=== PATIENT | male | born 1990 | race Caucasian/White ===

== ENCOUNTER 2017-01-09 23:45 | Emergency (ER) | payer SELFPAY ==
[~2017-01-09 23:45] MED LIST: NAPR-576 PO
[2017-01-09 23:48] VITALS: BP 152/101; PULSE 78; RESP 16; TEMP 98.3; O2SAT 97
[2017-01-10] MEDS ORDERED: MOBI15TA PO (01:45)
--- NOTE | 2017-01-10 01:45 | PD ---
HPI Chief Complaint: Abdominal Pain Time Seen by Provider: 01:33 Travel History International Travel<30 days: No Contact w/Intl Traveler<30days: No Traveled to known affect area: No History of Present Illness HPI 26-year-old male complains of painful umbilical hernia. Patient states that he has a medical hernia for the past few years. Patient states that the hernia has increased in size since then. Patient states that he has increasing pain around the umbilical hernia since this morning. Patient denies any fever. Patient denies nausea vomiting. Patient states the pain is sharp pain localized around a vehicle area. Patient denies any pain radiation. On a scale of 1-10 the pain is a 7. PFSH Past Medical History Asthma: Yes Diminished Hearing: No Past Surgical History Other Surgery: Yes (RIGHT LEG SURGERY) Social History Alcohol Use: Yes (OCCASIONALLY) Tobacco Use: No (never) Substance Use: No Allergies-Medications (Allergen,Severity, Reaction): Coded Allergies: Percocet (Verified Allergy, Severe, Hives, 03/01/15) Reported Meds & Prescriptions Reported Meds & Active Scripts Active Review of Systems General / Constitutional: No: Fever Eyes: No: Visual changes HENT: No: Headaches Cardiovascular: No: Chest Pain or Discomfort Respiratory: No: Shortness of Breath Gastrointestinal: Positive: Abdominal Pain Genitourinary: No: Dysuria Musculoskeletal: No: Pain Skin: No Rash Neurologic: No: Weakness Psychiatric: No: Depression Endocrine: No: Polydipsia Hematologic/Lymphatic: No: Easy Bruising Physical Exam Narrative GENERAL: Well-nourished, well-developed patient. SKIN: Focused skin assessment warm/dry. HEAD: Normocephalic. EYES: No scleral icterus. No injection or drainage. NECK: Supple, trachea midline. No JVD or lymphadenopathy. CARDIOVASCULAR: Regular rate and rhythm without murmurs, gallops, or rubs. RESPIRATORY: Breath sounds equal bilaterally. No accessory muscle use. GASTROINTESTINAL: Abdomen soft, nondistended. Patient has a small soft reducible umbilical hernia. Mild tenderness on palpation. MUSCULOSKELETAL: No cyanosis, or edema. BACK: Nontender without obvious deformity. No CVA tenderness. Data Data Last Documented VS Vital Signs Date Time Temp Pulse Resp B/P Pulse Ox O2 Delivery O2 Flow Rate FiO2 01/09/17 23:48 98.3 78 16 152/101 97 MDM Medical Decision Making Medical Screen Exam Complete: Yes Emergency Medical Condition: Yes Differential Diagnosis Differential diagnosis including reducible medical hernia, strangulated umbilical hernia incarcerated umbilical hernia. Narrative Course 26-year-old male with reducible umbilical hernia. Diagnosis Primary Impression: Umbilical hernia Qualified Code: K42.9 - Umbilical hernia without obstruction and without gangrene Patient Instructions: General Instructions Additional Instructions: Mobic as needed for pain. Follow up with general surgeon. Return if unable to reduce the hernia, increased abdominal pain, fever, vomiting. Med/Other Pt SpecificInfo: Prescription(s) given Scripts Meloxicam (Mobic)15 Mg Tab15 Mg PO DAILY #20 TAB Prov:Beny Camacho MD 01/10/17 Disposition: 01 DISCHARGE HOME Condition: Stable Beny Camacho MD Jan 10, 2017 01:45
== END 2017-01-10 02:28 | disposition home or self-care (01) ==
LOC: NEPC 23:45
DX: K42.9 Umbilical hernia without obstruction or gangrene (principal)
CPT/HCPCS: 99283

== ENCOUNTER 2017-02-07 14:45 | Emergency (ER) | payer SELFPAY ==
[~2017-02-07] VITALS: Ht 180.3 cm; Wt 141.0 kg
[~2017-02-07 14:45] MED LIST changes: +MOBI15TA PO; -NAPR-576 PO
[2017-02-07] MEDS ORDERED: IOHEXOL 350 MG/ML 10 ML VIAL (for RAD DIAG) IVCONTRAST ONE (14:46)
[2017-02-07 14:51] VITALS: BP 139/88; PULSE 95; RESP 16; TEMP 98.4; O2SAT 99
--- NOTE | 2017-02-07 14:52 | PD ---
Physical Exam Date Seen by Provider: Feb 07, 2017 Time Seen by Provider: 14:51 Narrative 26 yo male here for abdominal pain. On/Off for some time. pain on the left side of the abdomen. No N/V. Pressure like. No other medical issues. Vitals are stable in triage. Awaiting bed placement. [facility] Medical Record Reviewed: Yes Supervised Visit with ANSHU: No Gurpreet Anderson Feb 07, 2017 14:52
[2017-02-07 15:40] VITALS: O2SAT 98
[2017-02-07] MEDS ORDERED: SODIUM CHLOR 0.9% 1000 ML INJ 1,000 ML IV SCH (15:51)
[2017-02-07 15:53] LABS: AUTOMATED NEUTROPHIL # 4.1 TH/MM3 (1.8-7.7); BASOPHIL % 0.4 % (0.0-2.0); EOSINOPHIL # 0.3 TH/MM3 (0-0.4); EOSINOPHIL % 3.6 % (0.0-4.0); HEMATOCRIT 43.9 % (39.0-51.0); HEMO FLAGS DIFF FINAL; LYMPH % 35.6 % (9.0-44.0); LYMPHOCYTE # 2.6 TH/MM3 (1.0-4.8); MEAN CORPUSCULAR HEMOGLOBIN 27.5 PG (27.0-34.0); MEAN CORPUSCULAR HGB CONC 33.1 % (32.0-36.0); NEUT % 55.4 % (16.0-70.0); PLATELET COUNT 207 TH/MM3 (150-450); RED BLOOD COUNT 5.29 MIL/MM3 (4.50-5.90); RED CELL DISTRIBUTION WIDTH 14.3 % (11.6-17.2); WHITE BLOOD COUNT 7.4 TH/MM3 (4.0-11.0)
--- NOTE | 2017-02-07 15:56 | PD ---
HPI Chief Complaint: Abdominal Pain Time Seen by Provider: 15:43 Travel History International Travel<30 days: No Contact w/Intl Traveler<30days: No Traveled to known affect area: No History of Present Illness HPI 26-year-old male complains of left flank pain the left low quadrant abdominal pain. Patient states that the pain started several days ago and got worse since last night. Patient states that the pain is sharp pain started the right flank area with radiation down to left low quadrant of her abdomen. Patient states that the pain is worse with movement. Patient states that he has no pain at rest. Patient denies any fever chills. Patient denies any dysuria or frequency. Patient denies any nausea vomiting diarrhea. Patient states there has poor appetite today. On a scale of 1-10 the pain is a 7. PFSH Past Medical History Asthma: Yes Diminished Hearing: No Past Surgical History Other Surgery: Yes (RIGHT LEG SURGERY) Social History Alcohol Use: Yes (OCCASIONALLY) Tobacco Use: Yes (vapor) Substance Use: No Allergies-Medications (Allergen,Severity, Reaction): Coded Allergies: acetaminophen (Unverified Allergy, Severe, Hives, 02/07/17) oxycodone (Unverified Allergy, Severe, Hives, 02/07/17) Reported Meds & Prescriptions Reported Meds & Active Scripts Active Mobic (Meloxicam) 15 Mg Tab 15 Mg PO DAILY Review of Systems General / Constitutional: No: Fever Eyes: No: Visual changes HENT: No: Headaches Cardiovascular: No: Chest Pain or Discomfort Respiratory: No: Shortness of Breath Gastrointestinal: Positive: Abdominal Pain Genitourinary: No: Dysuria Musculoskeletal: No: Pain Skin: No Rash Neurologic: No: Weakness Psychiatric: No: Depression Endocrine: No: Polydipsia Hematologic/Lymphatic: No: Easy Bruising Physical Exam Narrative GENERAL: Well-nourished, well-developed patient. SKIN: Focused skin assessment warm/dry. HEAD: Normocephalic. EYES: No scleral icterus. No injection or drainage. NECK: Supple, trachea midline. No JVD or lymphadenopathy. CARDIOVASCULAR: Regular rate and rhythm without murmurs, gallops, or rubs. RESPIRATORY: Breath sounds equal bilaterally. No accessory muscle use. GASTROINTESTINAL: Abdomen soft, non-tender, nondistended. MUSCULOSKELETAL: No cyanosis, or edema. BACK: Nontender without obvious deformity. No CVA tenderness. Neurologic exam normal. Data Data Last Documented VS Vital Signs Date Time Temp Pulse Resp B/P (MAP) Pulse Ox O2 Delivery O2 Flow Rate FiO2 02/07/17 14:51 98.4 95 16 139/88 (105) 99 Orders Orders Complete Blood Count With Diff (02/07/17 14:52) Comprehensive Metabolic Panel (02/07/17 14:52) Lipase (02/07/17 14:52) Urinalysis - C+S If Indicated (02/07/17 14:52) Ct Abd/Pel W Iv Contrast(Rout) (02/07/17 15:51) Iv Access Insert/Monitor (02/07/17 15:51) Ecg Monitoring (02/07/17 15:51) Oximetry (02/07/17 15:51) Morphine Inj (Morphine Inj) (02/07/17 16:00) Ondansetron Inj (Zofran Inj) (02/07/17 16:00) Sodium Chlor 0.9% 1000 Ml Inj (Ns 1000 M (02/07/17 15:51) Sodium Chloride 0.9% Flush (Ns Flush) (02/07/17 16:00) Labs Laboratory Tests Test 02/07/17 13:10 02/07/17 15:10 White Blood Count 7.4 TH/MM3 Red Blood Count 5.29 MIL/MM3 Hemoglobin 14.5 GM/DL Hematocrit 43.9 % Mean Corpuscular Volume 83.0 FL Mean Corpuscular Hemoglobin 27.5 PG Mean Corpuscular Hemoglobin Concent 33.1 % Red Cell Distribution Width 14.3 % Platelet Count 207 TH/MM3 Mean Platelet Volume 9.2 FL Neutrophils (%) (Auto) 55.4 % Lymphocytes (%) (Auto) 35.6 % Monocytes (%) (Auto) 5.0 % Eosinophils (%) (Auto) 3.6 % Basophils (%) (Auto) 0.4 % Neutrophils # (Auto) 4.1 TH/MM3 Lymphocytes # (Auto) 2.6 TH/MM3 Monocytes # (Auto) 0.4 TH/MM3 Eosinophils # (Auto) 0.3 TH/MM3 Basophils # (Auto) 0.0 TH/MM3 CBC Comment DIFF FINAL Differential Comment Blood Urea Nitrogen 11 MG/DL Creatinine 1.04 MG/DL Random Glucose 85 MG/DL Total Protein 7.7 GM/DL Albumin 3.9 GM/DL Calcium Level 9.0 MG/DL Alkaline Phosphatase 62 U/L Aspartate Amino Transf (AST/SGOT) 16 U/L Alanine Aminotransferase (ALT/SGPT) 34 U/L Total Bilirubin 0.3 MG/DL Sodium Level 141 MEQ/L Potassium Level 4.1 MEQ/L Chloride Level 106 MEQ/L Carbon Dioxide Level 29.8 MEQ/L Anion Gap 5 MEQ/L Estimat Glomerular Filtration Rate 86 ML/MIN Lipase 88 U/L Urine Color YELLOW Urine Turbidity CLEAR Urine pH 7.0 Urine Specific [place] 1.019 Urine Protein TRACE mg/dL Urine Glucose (UA) NEG mg/dL Urine Ketones NEG mg/dL Urine Occult Blood MOD Urine Nitrite NEG Urine Bilirubin NEG Urine Urobilinogen LESS THAN 2.0 MG/DL Urine Leukocyte Esterase NEG Urine RBC 126 /hpf Urine WBC 1 /hpf Microscopic Urinalysis Comment CULT NOT INDICATED MDM Medical Decision Making Medical Screen Exam Complete: Yes Emergency Medical Condition: Yes Interpretation(s) 1614 p.m. CBC within normal limit. CMP within normal limit. UA positive RBC. Differential Diagnosis Differential diagnosis including musculoskeletal, nephrolithiasis, pyelonephritis, colitis, UTI. Narrative Course 26-year-old male with left flank pain the left low quadrant abdominal pain. Beny Camacho MD Feb 07, 2017 15:56
[2017-02-07 15:57] LABS: ANION GAP 5 MEQ/L (5-15); AST (GOT) 16 U/L (15-37); BICARBONATE 29.8 MEQ/L (21.0-32.0); BLOOD UREA NITROGEN 11 MG/DL (7-18); CHLORIDE 106 MEQ/L (98-107); GLOMERULAR FILTRATION RATE 86 ML/MIN (>89); POTASSIUM 4.1 MEQ/L (3.5-5.1); SODIUM (NA) 141 MEQ/L (136-145)
[2017-02-07 15:57] LABS: BLOOD, URINE MOD (NEG); COMMENT (UR) CULT NOT INDICATED; CULTURE IF INDICATED CULT NOT INDICATED; GLUCOSE,URINE NEG (NEG); KETONE, URINE NEG (NEG); NITRITE,URINE NEG (NEG); URINE COLOR YELLOW (YELLW/STRAW)
[2017-02-07 16:00] LABS: ALKALINE PHOSPHATASE 62 U/L (45-117); ALT (GPT) 34 U/L (12-78); TOTAL BILIRUBIN ADULT 0.3 MG/DL (0.2-1.0)
[2017-02-07] MEDS ORDERED: SODIUM CHLORIDE 0.9% FLUSH 10 ML FLUSH IV FLUSH PRN (16:00)
[2017-02-07] MEDS ORDERED: ONDANSETRON HCL 4 MG/2 ML VIAL IVP ONE (16:00)
[2017-02-07] MEDS ORDERED: MORPHINE SULFATE 4 MG/ML INJ IV PUSH ONE (16:00)
--- NOTE | 2017-02-07 17:31 | RADRPT ---
EXAM DATE/TIME: 02/07/2017 17:10 [place] COMPARISON: No previous studies available for comparison. INDICATIONS : Patient complains of left flank and left lower quadrant pain. IV CONTRAST: 100 cc Omnipaque 350 (iohexol) IV ORAL CONTRAST: No oral contrast ingested. RADIATION DOSE: 17.04 CTDIvol (mGy) ; Patient body habitus MEDICAL HISTORY : Asthma. SURGICAL HISTORY : None. ENCOUNTER: Initial ACUITY: 2 weeks PAIN SCALE: 6/10 LOCATION: Left flank lower quadrant TECHNIQUE: Volumetric scanning of the abdomen and pelvis was performed. Using automated exposure control and adjustment of the mA and/or kV according to patient size, radiation dose was kept as low as reasonably achievable to obtain optimal diagnostic quality images. DICOM format image data is av ailable electronically for review and comparison. FINDINGS: LOWER LUNGS: The visualized lower lungs are clear. LIVER: Mild fatty infiltration of the liver. There is no ductal dilatation. SPLEEN: Normal size without lesion. PANCREAS: Within normal limits. KIDNEYS: Nonobstructing 1 mm stone on the left. ADRENAL GLANDS: Within normal limits. VASCULAR: There is no aortic aneurysm. BOWEL/MESENTERY: The stomach, small bowel, and colon demonstrate no acute abnormality. There is no free intraperitoneal air or fluid. ABDOMINAL WALL: Small midline hernia containing only fat. RETROPERITONEUM: There is no lymphadenopathy. BLADDER: No wall thickening or mass. REPRODUCTIVE: Within normal limits. INGUINAL: There is no lymphadenopathy or hernia. MUSCULOSKELETAL: Within normal limits for patient age. CONCLUSION: Nonobstructing 1 mm stone on the left. Small midline abdominal hernia containing only fat. Trey Diallo MD FACR on February 07, 2017 at 17:27 Board Certified Radiologist. This report was verified electronically.
--- NOTE | 2017-02-07 17:42 | PD ---
Data Data Last Documented VS Vital Signs Date Time Temp Pulse Resp B/P (MAP) Pulse Ox O2 Delivery O2 Flow Rate FiO2 02/07/17 14:51 98.4 95 16 139/88 (105) 99 Orders Orders Complete Blood Count With Diff (02/07/17 14:52) Comprehensive Metabolic Panel (02/07/17 14:52) Lipase (02/07/17 14:52) Urinalysis - C+S If Indicated (02/07/17 14:52) Ct Abd/Pel W Iv Contrast(Rout) (02/07/17 15:51) Iv Access Insert/Monitor (02/07/17 15:51) Ecg Monitoring (02/07/17 15:51) Oximetry (02/07/17 15:51) Morphine Inj (Morphine Inj) (02/07/17 16:00) Ondansetron Inj (Zofran Inj) (02/07/17 16:00) Sodium Chlor 0.9% 1000 Ml Inj (Ns 1000 M (02/07/17 15:51) Sodium Chloride 0.9% Flush (Ns Flush) (02/07/17 16:00) Iohexol 350 Inj (Omnipaque 350 Inj) (02/07/17 14:46) Labs Laboratory Tests Test 02/07/17 13:10 02/07/17 15:10 White Blood Count 7.4 TH/MM3 Red Blood Count 5.29 MIL/MM3 Hemoglobin 14.5 GM/DL Hematocrit 43.9 % Mean Corpuscular Volume 83.0 FL Mean Corpuscular Hemoglobin 27.5 PG Mean Corpuscular Hemoglobin Concent 33.1 % Red Cell Distribution Width 14.3 % Platelet Count 207 TH/MM3 Mean Platelet Volume 9.2 FL Neutrophils (%) (Auto) 55.4 % Lymphocytes (%) (Auto) 35.6 % Monocytes (%) (Auto) 5.0 % Eosinophils (%) (Auto) 3.6 % Basophils (%) (Auto) 0.4 % Neutrophils # (Auto) 4.1 TH/MM3 Lymphocytes # (Auto) 2.6 TH/MM3 Monocytes # (Auto) 0.4 TH/MM3 Eosinophils # (Auto) 0.3 TH/MM3 Basophils # (Auto) 0.0 TH/MM3 CBC Comment DIFF FINAL Differential Comment Blood Urea Nitrogen 11 MG/DL Creatinine 1.04 MG/DL Random Glucose 85 MG/DL Total Protein 7.7 GM/DL Albumin 3.9 GM/DL Calcium Level 9.0 MG/DL Alkaline Phosphatase 62 U/L Aspartate Amino Transf (AST/SGOT) 16 U/L Alanine Aminotransferase (ALT/SGPT) 34 U/L Total Bilirubin 0.3 MG/DL Sodium Level 141 MEQ/L Potassium Level 4.1 MEQ/L Chloride Level 106 MEQ/L Carbon Dioxide Level 29.8 MEQ/L Anion Gap 5 MEQ/L Estimat Glomerular Filtration Rate 86 ML/MIN Lipase 88 U/L Urine Color YELLOW Urine Turbidity CLEAR Urine pH 7.0 Urine Specific [place] 1.019 Urine Protein TRACE mg/dL Urine Glucose (UA) NEG mg/dL Urine Ketones NEG mg/dL Urine Occult Blood MOD Urine Nitrite NEG Urine Bilirubin NEG Urine Urobilinogen LESS THAN 2.0 MG/DL Urine Leukocyte Esterase NEG Urine RBC 126 /hpf Urine WBC 1 /hpf Microscopic Urinalysis Comment CULT NOT INDICATED MDM Supervised Visit with ANSHU: No Narrative Course The patient was initially evaluated by the previous provider and signed out to me at the beginning of my shift pending CT abdomen and pelvis and disposition. See his note for further details. Briefly this is a 26-year-old male who presents for evaluation of left flank pain radiating to his left lower abdomen. Symptoms have been going on for last couple of days. History of kidney stones. CBC is unremarkable. CMP is unremarkable. UA shows moderate occult blood, [address] abdomen and pelvis shows nonobstructing 1 mm stone in the left. Small midline abdominal hernia containing only fat. Patient was provided morphine. On my exam he is resting comfortably. There is no abdominal tenderness. He has a reducible umbilical hernia. He was made aware of all findings. He is stable for discharge home with outpatient follow-up with a primary care physician this week. He was informed on when to return to the emergency department. He verbalizes understanding and agreement with plan. Diagnosis Primary Impression: Left flank pain Additional Impression: Hematuria Qualified Codes: R31.29 - Other microscopic hematuria Referrals: [facility] 3 days Additional Instruction: Follow-up with a primary care physician this week for repeat urinalysis. Return to the emergency department for worsening symptoms or any other concerns. Disposition: 01 DISCHARGE HOME Condition: Stable El Meyer MD Feb 07, 2017 17:42
[2017-02-07 18:02] VITALS: BP 140/90
== END 2017-02-07 18:05 | disposition home or self-care (01) ==
LOC: NEPD 14:45
DX: R10.9 Unspecified abdominal pain (principal); R31.9 Hematuria, unspecified; K42.9 Umbilical hernia without obstruction or gangrene; J45.909 Unspecified asthma, uncomplicated; Z72.0 Tobacco use
CPT/HCPCS: 74177; 80053; 81001; 83690; 85025; 96361; 96374; 96375; 99285; J2270; J2405; J7030; Q9967

== ENCOUNTER 2017-06-13 18:09 | Emergency (ER) | payer SELFPAY ==
[~2017-06-13] VITALS: Ht 180.3 cm; Wt 136.4 kg
[2017-06-13 18:10] VITALS: BP 173/91; PULSE 80; RESP 16; TEMP 99.2; O2SAT 97
--- NOTE | 2017-06-13 18:55 | PD ---
HPI Chief Complaint: Cold / Flu Symptoms Time Seen by Provider: 18:35 Travel History International Travel<30 days: No Contact w/Intl Traveler<30days: No Traveled to known affect area: No History of Present Illness HPI 27-year-old male with history of childhood asthma presents to the emergency room for evaluation of nonproductive cough for the past several days but worsened last night. He has been taking multiple [id number] medications without any relief in symptoms. Cough is severe and occasionally productive. He has associated headache, chest pain, and body aches from coughing so hard. His mother gave him an inhaler but he left it at her house. Patient denies fever, chills, congestion, or any other symptoms. He has 1 sick contact. 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 PFSH Past Medical History Asthma: Yes Diminished Hearing: No Respiratory: Yes (asthma) Tetanus Vaccination: > 5 Years Influenza Vaccination: No Past Surgical History Other Surgery: Yes (RIGHT LEG SURGERY) Social History Alcohol Use: Yes (OCCASIONALLY) Tobacco Use: Yes (vapor) Substance Use: No Allergies-Medications (Allergen,Severity, Reaction): Coded Allergies: acetaminophen (Unverified Allergy, Severe, Hives, 06/13/17) oxycodone (Unverified Allergy, Severe, Hives, 06/13/17) Reported Meds & Prescriptions Reported Meds & Active Scripts Active Ventolin Hfa 18 GM Inh (Albuterol Sulfate) 90 Mcg/Act Aer 2 Puff INH Q6H PRN Prednisone 20 Mg Tab 40 Mg PO DAILY Take 40 mg (2 tablets) daily for 5 days Review of Systems Except as stated in HPI: all other systems reviewed are Neg Physical Exam Narrative GENERAL: Well-nourished, well-developed male in no acute distress. Afebrile. Ambulatory. SKIN: Focused skin assessment warm/dry. HEAD: Normocephalic. EYES: No scleral icterus. No injection or drainage. ENT: Mucosa pink and moist. No erythema or exudates. No uvular edema. No uvular , palatal, or tonsillar deviation. Airway patent. Nasal turbinates appear normal without nasal blood, purulent drainage or septal hematoma. NECK: Supple, trachea midline. No JVD or lymphadenopathy. CARDIOVASCULAR: Regular rate and rhythm without murmurs, gallops, or rubs. RESPIRATORY: Breath sounds equal bilaterally. No accessory muscle use. Lungs sounds somewhat distant but clear. No crackles, rales, wheezes, or rhonchi. Data Data Last Documented VS Vital Signs Date Time Temp Pulse Resp B/P (MAP) Pulse Ox O2 Delivery O2 Flow Rate FiO2 06/13/17 18:10 99.2 80 16 173/91 (118) 97 Room Air Orders Orders Albuterol-Ipratropium Neb (Duoneb Neb) (06/13/17 19:00) [facility] Medical Decision Making Medical Screen Exam Complete: Yes Emergency Medical Condition: Yes Medical Record Reviewed: Yes Differential Diagnosis Asthma exacerbation, bronchitis, upper respiratory infection, flu, pneumonia unlikely Narrative Course 27-year-old male with history of asthma presents to the emergency room for evaluation of cough for the past week but worsened last night. No history of fevers. Patient is afebrile and well-appearing in the emergency room. No increased work of breathing. Lung sounds clear and equal bilaterally. They are slightly distant the patient was given a breathing treatment in the ED. States symptoms started after he sanded down gibbs but he also has a sick contact. Differential includes bronchitis versus acute asthma exacerbation. Treated for both with an inhaler and prednisone. Follow up with primary care physician or return for worsening symptoms. He understands and agrees to plan. Diagnosis Primary Impression: Bronchitis Referrals: Primary Care Physician Additional Instructions: Inhaler as directed, as needed for shortness breath, wheezing. Take prednisone as directed, until gone. Take ibuprofen with food as directed, as needed for pain. Follow-up with a primary care physician. Return to the emergency room for worsening symptoms. Med/Other Pt SpecificInfo: Prescription(s) given Scripts Albuterol 18 GM Inh (Ventolin Hfa 18 GM Inh) 90 Mcg/Act Aer 2 PUFF INH Q6H Y for SHORTNESS OF BREATH, #1 INHALER 0 Refills Prov: Gopi Bonilla MD 06/13/17 Prednisone (Prednisone) 20 Mg Tab 40 MG PO DAILY, #10 TAB 0 Refills Take 40 mg (2 tablets) daily for 5 days Prov: Gopi Bonilla MD 06/13/17 Disposition: 01 DISCHARGE HOME Condition: Stable Judy Kramer Jun 13, 2017 18:55
[2017-06-13] MEDS ORDERED: RESP: ALBUTEROL 2.5 MG/IPRATROPIUM 0.5 MG NEB (SCH) NEB ONE (19:00)
[2017-06-13] MEDS ORDERED: VENTAER INH (19:22)
[2017-06-13] MEDS ORDERED: PRED20 PO (19:22)
== END 2017-06-13 20:23 | disposition home or self-care (01) ==
LOC: NEPK 18:09
DX: J45.909 Unspecified asthma, uncomplicated (principal); F17.290 Nicotine dependence, other tobacco product, uncomplicated
CPT/HCPCS: 94664; 99284